=== PATIENT | male | born 1940 | race Caucasian/White ===

== ENCOUNTER → 2017-08-07 | Outpatient (CLI) | payer MEDICARE ==
[~2017-08-07] MED LIST: ASPI-555 PO; ATEN25TA PO; CLOP75TA14 PO; IOPAMIDOL-370 100 ML VIAL IV ONE; MULT1CAP32 PO; SIMV40TA59 PO
== END | disposition home or self-care (01) ==
LOC: RAH 10:50
PROVIDERS: ATTEND Internal Medicine Cardiovascular Disease
DX: K80.20 Calculus of gallbladder without cholecystitis without obstruction (principal); I72.3 Aneurysm of iliac artery; N20.0 Calculus of kidney; I71.4 Abdominal aortic aneurysm, without rupture
CPT/HCPCS: 71275; 74174; Q9967

== ENCOUNTER 2017-09-20 19:39 | Emergency (ER) | payer MEDICARE ==
[~2017-09-20 19:39] MED LIST changes: -IOPAMIDOL-370 100 ML VIAL IV ONE
[2017-09-20 20:17] LABS: BASOPHILS % (AUTO) 0.8 % (0.0-5.0); EOSINOPHILS % (AUTO) 7.5 % (0.0-8.0); HEMATOCRIT 33.5 % (42-54); LYMPHOCYTES % (AUTO) 50.9 % (21.0-51.0); MEAN CORPUSCULAR HEMOGLOBIN 40.6 pg (27.0-33.0); MEAN CORPUSCULAR HGB CONC 35.3 g/dL (32.0-36.0); MEAN CORPUSCULAR VOLUME 114.9 fL (79-99); MONOCYTES % (AUTO) 7.4 % (3.0-13.0); NEUTROPHILS % (AUTO) 33.4 % (40.0-77.0); NUCLEATED RED BLOOD CELLS 0.1 % (0.0-0.19); PLATELET COUNT (AUTO) 116 K/uL (130-400); RED BLOOD CELL COUNT(AUTO) 2.92 MIL/uL (4.50-6.20); RED CELL DISTRIBUTION WIDTH 14.6 % (11.0-15.5); WHITE BLOOD COUNT (AUTO) 5.6 K/uL (4.8-10.8)
[2017-09-20 20:26] LABS: CREATININE 1.5 mg/dL (0.5-1.5)
[2017-09-20 20:50] LABS: BILIRUBIN,URINE Negative (NEGATIVE); COLOR,URINE Orange (YELLOW); GLUCOSE, URINE (UA) Negative (NEGATIVE); KETONES,URINE Negative (NEGATIVE); LEUKOCYTE ESTERASE ,URINE Trace (NEGATIVE); NITRATE,URINE Negative (NEGATIVE); OCCULT BLOOD,URINE Large (NEGATIVE); PROTEIN,URINE POS 2+ (NEGATIVE)
[2017-09-20 20:57] LABS: APPEARANCE,URINE SLIGHTLY CLOUDY (CLEAR)
[2017-09-20 21:11] LABS: BACTERIA,URINE Rare /HPF (None Seen); SQUAMOUS EPITHELIAL CELL,UR Rare /HPF (0-2)
[2017-09-20 21:12] LABS: MUCUS,URINE Rare LPF (None Seen)
== END 2017-09-20 21:34 | disposition home or self-care (01) ==
LOC: EDH 19:39
DX: R31.9 Hematuria, unspecified (principal); R42 Dizziness and giddiness; I10 Essential (primary) hypertension; E78.5 Hyperlipidemia, unspecified; I25.810 Atherosclerosis of coronary artery bypass graft(s) without angina pectoris; Z95.1 Presence of aortocoronary bypass graft; Z72.0 Tobacco use
CPT/HCPCS: 36415; 80048; 81001; 85025

== ENCOUNTER → 2018-07-02 | Outpatient (CLI) | payer MEDICARE | END | disposition home or self-care (01) | LOC: SHCH 10:42 | PROVIDERS: ATTEND Internal Medicine Cardiovascular Disease | DX: I71.4 Abdominal aortic aneurysm, without rupture (principal) | CPT/HCPCS: 93978 ==

== ENCOUNTER → 2018-07-09 | Outpatient (CLI) | payer MEDICARE ==
[~2018-07-09] MED LIST changes: +IOHEXOL 350 MG/ML 100ML INFUS..BTL IV ONE
== END | disposition home or self-care (01) ==
LOC: RAH 07:49
PROVIDERS: ATTEND Internal Medicine Cardiovascular Disease
DX: K74.60 Unspecified cirrhosis of liver (principal); J90 Pleural effusion, not elsewhere classified; K80.20 Calculus of gallbladder without cholecystitis without obstruction; I71.4 Abdominal aortic aneurysm, without rupture; K57.30 Diverticulosis of large intestine without perforation or abscess without bleeding; I70.208 Unspecified atherosclerosis of native arteries of extremities, other extremity
CPT/HCPCS: 74175; Q9967

== ENCOUNTER 2019-04-20 13:37 | Inpatient (IN) | payer MEDICARE ==
[~2019-04-20] VITALS: Ht 180.3 cm; Wt 72.5 kg
[~2019-04-20 13:37] MED LIST changes: -IOHEXOL 350 MG/ML 100ML INFUS..BTL IV ONE
[2019-04-20] MEDS ORDERED: ONDANSETRON HCL 4 MG/2 ML VIAL ONE (14:36)
[2019-04-20 14:42] LABS: BASOPHILS % (AUTO) 0.6 % (0.0-5.0); EOSINOPHILS % (AUTO) 7.6 % (0.0-8.0); HEMATOCRIT 30.3 % (42-54); LYMPHOCYTES % (AUTO) 33.5 % (21.0-51.0); MEAN CORPUSCULAR HEMOGLOBIN 37.2 pg (27.0-33.0); MEAN CORPUSCULAR VOLUME 109.4 fL (79-99); MONOCYTES % (AUTO) 10.8 % (3.0-13.0); NEUTROPHILS % (AUTO) 47.5 % (40.0-77.0); NUCLEATED RED BLOOD CELLS 0.1 % (0.0-0.19); PLATELET COUNT (AUTO) 121 K/uL (130-400); RED BLOOD CELL COUNT(AUTO) 2.77 MIL/uL (4.50-6.20); RED CELL DISTRIBUTION WIDTH 15.9 % (11.0-15.5)
[2019-04-20 14:56] LABS: CREATININE 2.9 mg/dL (0.5-1.5); POTASSIUM 4.4 mmol/L (3.5-5.1)
[2019-04-20 14:57] LABS: INR 1.15 (0.85-1.15); PARTIAL THROMBOPLASTIN TIME 30.1 SEC (26.3-35.5)
[2019-04-20 15:00] LABS: ALBUMIN 2.6 g/dL (3.5-5.0); BILIRUBIN,TOTAL 1.3 mg/dL (0.2-1.0); TOTAL PROTEIN, SERUM 7.8 g/dL (6.0-8.3)
[2019-04-20 15:20] LABS: PLATELET MORPHOLOGY PLT CLUMPS PRESENT
[2019-04-20] MEDS ORDERED: FUROSEMIDE 10 MG/ML 4ML VIAL ONE (15:34)
[2019-04-20] MEDS ORDERED: FUROSEMIDE 10 MG/ML 2ML VIAL ONE (16:56)
[2019-04-20] MEDS ORDERED: ACETAMINOPHEN 325 MG TAB PO PRN (17:45)
--- NOTE | 2019-04-20 19:15 | NUR ---
PT LAYING IN BED, DENIES ANY PAIN OR DISCOMFORT, RECEIVED REPORT FROM FEMI MENDIETA, PT ADMIT FROM ED, D/T SOB, BLE EDEMA, CALL LIGHT WITHIN REACH, NO FAMILY AT BEDSIDE.
[2019-04-20 19:25] VITALS: BP 125/81
--- NOTE | 2019-04-20 19:30 | NUR ---
ARIAS ASSESSING PT.
[2019-04-20] MEDS ORDERED: ENOXAPARIN SODIUM 80 MG/0.8 ML SQ SCH (19:45)
[2019-04-20] MEDS ORDERED: METOPROLOL TARTRATE 25 MG TAB PO SCH (19:45)
[2019-04-20] MEDS: METOPROLOL TARTRATE 25 MG TAB PO SCH (20:28)
[2019-04-20] MEDS: FUROSEMIDE 10 MG/ML 2ML VIAL IVP SCH (20:28)
[2019-04-20 22:31] LABS: TROPONIN I 1.16 ng/mL (0.00-0.06)
[2019-04-20 23:42] VITALS: BP 103/62
[2019-04-21 04:14] VITALS: BP 112/56
[2019-04-21 04:30] LABS: HEMATOCRIT 29.3 % (42-54); MEAN CORPUSCULAR HEMOGLOBIN 37.8 pg (27.0-33.0); MEAN CORPUSCULAR HGB CONC 34.2 g/dL (32.0-36.0); MEAN CORPUSCULAR VOLUME 110.6 fL (79-99); NUCLEATED RED BLOOD CELLS 0.1 % (0.0-0.19); PLATELET COUNT (AUTO) 109 K/uL (130-400); RED BLOOD CELL COUNT(AUTO) 2.65 MIL/uL (4.50-6.20); RED CELL DISTRIBUTION WIDTH 16.3 % (11.0-15.5); WHITE BLOOD COUNT (AUTO) 4.2 K/uL (4.8-10.8)
[2019-04-21] MEDS ORDERED: FURO40TA5 PO (04:33)
[2019-04-21] MEDS ORDERED: METO25TA6 PO (04:33)
[2019-04-21 05:33] LABS: ALBUMIN 2.5 g/dL (3.5-5.0); BILIRUBIN,TOTAL 1.5 mg/dL (0.2-1.0); CREATININE 2.8 mg/dL (0.5-1.5); MAGNESIUM 1.9 mg/dL (1.80-2.40); PHOSPHORUS 4.5 mg/dL (2.5-4.9); POTASSIUM 4.8 mmol/L (3.5-5.1); TOTAL PROTEIN, SERUM 7.5 g/dL (6.0-8.3)
[2019-04-21 05:35] LABS: PLATELET MORPHOLOGY COMMENT LARGE PLTS PRESENT; TROPONIN I 4.41 ng/mL (0.00-0.06)
--- NOTE | 2019-04-21 05:48 | NUR ---
TROPONIN 1.16 AT 10PM, TROPONIN AT 4.41 REPORTED BY LORI ISLAS. BNP OVER 5,000 THIS AM. PAGED [facility] MULTIPLE TIMES THROUGHOUT THE NIGHT, NO CALL BACK. [facility], PROVIDED ME WITH [employer] PHONE NUMBER. SPOKE TO ARIAS, HE IS AWARE, PT HAS NO SYMPTOMS, NO CHEST PAIN, NO NEW ORDERS AT THIS TIME.
[2019-04-21 07:56] VITALS: BP 107/64
[2019-04-21] MEDS: ENOXAPARIN SODIUM 80 MG/0.8 ML SQ SCH (09:00)
--- NOTE | 2019-04-21 09:10 | NUR ---
Left Side Thoracentesis Patient taken down to IR for Thorcentesis on Left side today 04-21-2019. Patient A/O X4. Stable. Taken down by domestic technician Bora.
--- NOTE | 2019-04-21 10:25 | NUR ---
U/S GD LT THORACENTESIS PROCEDURE PERFORMED BY DR Mina MÉNDEZ. PUNCTURE SITE LT POSTERIOR BACK AND PATIENT TOLERATED PROCEDURE WELL. TOTAL REMOVED 1.6 LITERS OF CLOUDY YELLOW FLUID. END OF PROCEDURE AT 1000. CATHETER REMOVED AND DRESSING APPLIED. NO BLEEDING NOTED. POST CHEST X-RAY TAKEN AND READ BY DR Mina MÉNDEZ. NO PNEUMOTHORAX SEEN. REPORT GIVEN TO FEMI MENDIETA AND PATIENT TRANSPORTED TO [facility] VIA W/C AT 1025. AAO X3 WITH NO C/O PAIN. SPECIMEN SENT TO LAB.
--- NOTE | 2019-04-21 10:30 | NUR ---
Left Thoracentesis Patient brought back up from IR post Left Thoracentesis. 1.6L removed from Left side. Patient tolerated well as per report. Will proceed tomorrow with RIGHT Thoracentesis 04-22-2019.
--- NOTE | 2019-04-21 10:45 | NUR ---
Advised to Hold Lovenox 80mg for today and tomorrow in anticipation for Right Thoracentesis on 04-22-19. Hold Lovenox for 24 hrs post procedure.
[2019-04-21] MEDS ORDERED: METO-408 PO (10:56)
[2019-04-21] MEDS ORDERED: SIMV-46 PO (10:56)
[2019-04-21] MEDS: METOPROLOL TARTRATE 25 MG TAB PO SCH ×2 (10:57→20:08)
[2019-04-21] MEDS: FUROSEMIDE 10 MG/ML 2ML VIAL IVP SCH ×3 (10:58→20:09)
[2019-04-21 11:37] VITALS: BP 95/57
--- NOTE | 2019-04-21 11:48 | NUR ---
DC PLAN VISITED WITH PATIENT. PATIENT LIVES ALONE. PROVIDER 8 HRS A DAY. USES A WALKER HAS HOME . FEELS SAFE TO RETURN HOME. Addendum: 04/21/19 at 1150 by MAGO ROSALES RN CM Amended: Links added.
[2019-04-21 14:07] LABS: APPEARANCE BODY FLUID CLEAR (CLEAR); COLOR,BODY FLUID YELLOW (LT YELLOW); SPECIMENTYPE,BODY FLUID THORACENTESIS; TOTAL VOLUME,BODY FLUID 1600 mL
[2019-04-21 14:08] LABS: BODY FLUID RBC 649 /cu. mm.; BODY FLUID WBC 320 /cu. mm.
[2019-04-21 14:20] LABS: BF LYMPHOCYTE 80 %; BF MESOTHELIAL 17 %; BF MONOCYTE 2 %
[2019-04-21 15:31] VITALS: BP 95/64
--- NOTE | 2019-04-21 16:30 | NUR ---
Dr. Cortes paged for Consult for oliguria and elevated creatinine. Paged to His Pager. Pending call back at this time.
[2019-04-21 19:50] VITALS: BP 106/65
[2019-04-21] MEDS ORDERED: SIMVASTATIN 20 MG TABLET PO SCH (21:00)
[2019-04-21 23:44] VITALS: BP 106/53
[2019-04-22 04:02] VITALS: BP 102/60
--- NOTE | 2019-04-22 05:00 | NUR ---
DR COLLAZO ASSESSED PT, GAVE THE ORDER TO DISCHARGE PATIENT HOME AFTER THORACENTESIS PROCEDURE TODAY. FOLLOW UP WITH DR COLLAZO AT HIS OFFICE Saturday04/24/2019 AM. APPOINTMENT NEEDS TO BE SCHEDULED FOR PATIENT.
[2019-04-22 05:28] LABS: HEMATOCRIT 28.8 % (42-54); MEAN CORPUSCULAR HGB CONC 33.9 g/dL (32.0-36.0); MEAN CORPUSCULAR VOLUME 109.3 fL (79-99); NUCLEATED RED BLOOD CELLS 1.4 % (0.0-0.19); PLATELET COUNT (AUTO) 116 K/uL (130-400); RED BLOOD CELL COUNT(AUTO) 2.64 MIL/uL (4.50-6.20); RED CELL DISTRIBUTION WIDTH 16.5 % (11.0-15.5); WHITE BLOOD COUNT (AUTO) 4.9 K/uL (4.8-10.8)
[2019-04-22 05:46] LABS: EOSINOPHILS % (MANUAL) 1 % (1-6); LYMPHOCYTES % (MANUAL) 34 % (22-44); MAN.DIFF COMMENT-IMPRESSION MANUAL DIFFERENTIAL; MONOCYTES % (MANUAL) 8 % (2-9); SEGMENTED NEUTROPHILS % 57 % (40-70)
[2019-04-22 05:47] LABS: PLATELET MORPHOLOGY COMMENT SLIGHTLY DECREASED
[2019-04-22 05:50] LABS: ALBUMIN 2.4 g/dL (3.5-5.0); BILIRUBIN,TOTAL 1.4 mg/dL (0.2-1.0); CREATININE 3.1 mg/dL (0.5-1.5); POTASSIUM 4.9 mmol/L (3.5-5.1)
[2019-04-22 07:54] VITALS: BP 113/59
[2019-04-22] MEDS: ENOXAPARIN SODIUM 80 MG/0.8 ML SQ SCH (08:03)
[2019-04-22 08:29] LABS: APPEARANCE,URINE Cloudy (CLEAR); BILIRUBIN,URINE Negative (NEGATIVE); COLOR,URINE Yellow (YELLOW); GLUCOSE, URINE (UA) Negative (NEGATIVE); KETONES,URINE Negative (NEGATIVE); LEUKOCYTE ESTERASE ,URINE Negative (NEGATIVE); NITRATE,URINE Negative (NEGATIVE); OCCULT BLOOD,URINE Moderate (NEGATIVE); PROTEIN,URINE Negative (NEGATIVE)
[2019-04-22 08:33] LABS: BACTERIA,URINE Many /HPF (None Seen); CALCIUM OXALATE CRYSTALS,UR Few /LPF (None Seen); RBC,URINE 0-1 /HPF (0-1); SQUAMOUS EPITHELIAL CELL,UR Rare /HPF (0-2)
[2019-04-22] MEDS ORDERED: ASPIRIN 81MG TAB.CHEW PO SCH (09:00)
[2019-04-22] MEDS ORDERED: FOLIC ACID/VITAMIN B COMP W-C 1 MG CAP/TAB PO SCH (09:00)
[2019-04-22] MEDS: METOPROLOL TARTRATE 25 MG TAB PO SCH (09:29)
[2019-04-22] MEDS: FUROSEMIDE 10 MG/ML 2ML VIAL IVP SCH (09:33)
[2019-04-22 12:08] VITALS: BP 108/61
--- NOTE | 2019-04-22 14:40 | NUR ---
TO USG THORACENTESIS VIA BED ACCOMPANIED BY INTERIOR SYSTEMS CARPENTER.
--- NOTE | 2019-04-22 15:00 | NUR ---
U/S GD RIGHT THORACENTESIS PROCEDURE PERFORMED BY DR PEÑA. PUNCTURE SITE RIGHT POSTERIOR RIB CAGE AND PATIENT TOLERATED PROCEDURE WELL. TOTAL REMOVED 1.5 LITERS OF CLOUDY YELLOW FLUID. END OF PROCEDURE AT 1510. CATHETER REMOVED AND DRESSING APPLIED. NO BLEEDING NOTED. POST CHEST X-RAY PERFORMED, DR. PEÑA READ, NEGATIVE FOR PNEUMOTHORAX. REPORT CALLED TO FEMI ADAM. PT TRANSPORTED BACK TO ROOM 232 VIA W/C, STABLE, AAO X3 WITH NO C/O PAIN.
[2019-04-22 16:00] VITALS: BP 107/55
--- NOTE | 2019-04-22 16:12 | NUR ---
DR. LOYA IN ROOM SPEAKING WITH PT. AND INFORMING OF RENAL US RESULTS. QUESTIONS ANSWERED BY DR. LOYA.
--- NOTE | 2019-04-22 17:35 | NUR ---
HL REMOVED, CATHETER INTACT. DISCHARGE INSTRUCTIONS GIVEN TO PT. AND PT.'S SON AT BEDSIDE, VERBALIZED MUTUAL UNDERSTANDING.
== END 2019-04-22 18:18 | disposition home or self-care (01) | DRG 291 ==
LOC: EDH 13:37 → EDHIP 17:05 → 2AH 18:16
PROVIDERS: ADMIT Family Medicine; ATTEND Family Medicine
PROC: 0W9B3ZZ Drainage of Left Pleural Cavity, Percutaneous Approach (ICD-10-PCS; principal; 2019-04-21)
PROC: 0W993ZZ Drainage of Right Pleural Cavity, Percutaneous Approach (ICD-10-PCS; 2019-04-22)
DX: I13.0 Hypertensive heart and chronic kidney disease with heart failure and stage 1 through stage 4 chronic kidney disease, or unspecified chronic kidney disease (principal); I50.21 Acute systolic (congestive) heart failure; N17.9 Acute kidney failure, unspecified; I42.9 Cardiomyopathy, unspecified; E11.22 Type 2 diabetes mellitus with diabetic chronic kidney disease; E11.51 Type 2 diabetes mellitus with diabetic peripheral angiopathy without gangrene; N18.9 Chronic kidney disease, unspecified; I25.10 Atherosclerotic heart disease of native coronary artery without angina pectoris; E78.5 Hyperlipidemia, unspecified; F17.200 Nicotine dependence, unspecified, uncomplicated; I48.0 Paroxysmal atrial fibrillation; N20.0 Calculus of kidney; N40.1 Benign prostatic hyperplasia with lower urinary tract symptoms; R33.8 Other retention of urine; Z79.899 Other long term (current) drug therapy; Z95.1 Presence of aortocoronary bypass graft
CPT/HCPCS: 32555; 36415; 71045; 71046; 76770; 80053; 81001; 82550; 82728; 83540; 83550; 83735; 83874; 83880; 84100; 84484; 85025; 85027; 85610; 85730; 87071; 87205; 89051; 93005; 93306; 99291; G0378; J1650; J1940; J2405